=== PATIENT | male | born 1965 ===

== ENCOUNTER 2020-11-17 15:40 | Outpatient (CLI) | payer OTHER, SELFPAY ==
[2020-11-17 17:07] LABS: SARS-CoV-2 RNA PCR Negative (Negative)
== END 2020-11-17 15:41 | disposition home or self-care (01) ==
LOC: CHSLAB 15:45
PROVIDERS: Visit Provider Family Medicine
DX: Z20.822 Contact with and (suspected) exposure to COVID-19 (principal)
CPT/HCPCS: C9803; U0003; U0005